=== PATIENT | female | born 1980 | race Hispanic/Latino ===

== ENCOUNTER 2017-05-13 09:43 | Outpatient (CLI) | payer OTHER ==
[2017-05-13] MEDS ORDERED: Iopamidol 370 76% 100 ML VIAL ONE (16:05)
== END 2017-05-13 09:44 | disposition home or self-care (01) ==
LOC: BICCT 09:43
PROVIDERS: ATTEND Family Medicine
DX: R10.13 Epigastric pain (principal); K76.0 Fatty (change of) liver, not elsewhere classified; N83.8 Other noninflammatory disorders of ovary, fallopian tube and broad ligament
CPT/HCPCS: 74177

== ENCOUNTER 2017-05-17 16:30 | Emergency (ER) | payer OTHER ==
[2017-05-17] MEDS ORDERED: Ondansetron HCl/PF 4 MG/2 ML Vial ONE (17:08)
[2017-05-17] MEDS ORDERED: Proparacaine 0.5% Opth 15 ML BOT ONE (17:32)
[2017-05-17] MEDS ORDERED: Fluorescein Opthalmic Strip ONE (17:32)
[2017-05-17] MEDS ORDERED: Metoclopramide HCl 10 MG/2 ML VIAL ONE (17:35)
[2017-05-17] MEDS ORDERED: diphenhydrAMINE 50 MG/ML VIAL ONE (17:35)
== END 2017-05-17 20:01 | disposition home or self-care (01) ==
LOC: ERS 16:30
DX: M79.2 Neuralgia and neuritis, unspecified (principal); R51 Headache; I10 Essential (primary) hypertension
CPT/HCPCS: 96365; 96375; J1200; J2405; J2765

== ENCOUNTER 2019-07-25 09:37 | Emergency (ER) | payer OTHER, SELFPAY ==
--- NOTE | 2019-07-25 10:04 | RAD ---
RADIOGRAPH CHEST 1 VIEW: DATE: 07/25/2019 HISTORY: 38-year-old female with hypertension and chest pain FINDINGS: There is no airspace density, pulmonary edema, or pneumothorax. The lateral costophrenic angles are n ot effaced. IMPRESSION: No acute pulmonary findings.
[2019-07-25] MEDS ORDERED: Iopamidol-370 76% 500 ML 1 ML ONE (10:19)
[2019-07-25] MEDS ORDERED: Ondansetron PF 4 MG/2 ML Vial ONE (10:21)
[2019-07-25] MEDS ORDERED: Morphine 4 MG/ML VIAL ONE ×2 (10:21→13:53)
[2019-07-25] MEDS ORDERED: Ketorolac Tromethamine 30 MG/ML VIAL ONE (10:21)
[2019-07-25 10:36] LABS: #Basophils 0.1 thou/uL (0.0-0.2); #Eosinphils 0.1 thou/uL (0.0-0.7); #Lymphocytes 2.2 thou/uL (1.20-3.40); #Monocytes 0.9 thou/uL (0.11-0.59); #Neutrophils 8.6 thou/uL (1.40-6.50); %Basophils 0.5 % (0.0-1.0); %Lymphocytes 18.3 % (21.0-51.0); %Monocytes 7.2 % (0.0-10.0); Hemoglobin 13.4 g/dL (12.0-16.0); Mean Corpuscular Hemoglobin 29.5 pg (27.0-31.0); Mean Corpuscular Volume 92.2 fL (78.0-98.0); Mean Platelet Volume 9.4 fL (7.4-10.4); Platelet Count 239 thou/uL (130-400); RBC Distribution Width 12.5 % (11.5-14.5); Red Blood Cell (RBC) Count 4.54 mill/uL (4.20-5.40); White Blood Cell (WBC) Count 11.7 thou/uL (4.8-10.8)
[2019-07-25 10:56] LABS: D-Dimer Test 0.49 *mcg/mL (0.27-0.43)
[2019-07-25 10:57] LABS: BHCG - Serum Negative (NEGATIVE); Pregs Control Background? CLEAR/WHITE (CLR/WHITE); Pregs Control Bar Appear? YES (CONTROL BAR)
[2019-07-25 10:58] LABS: ALT (SGPT) 33 U/L (8-55); AST (SGOT) 28 U/L (5-34); Albumin 4.1 g/dL (3.5-5.0); Alkaline Phosphatase 77 U/L (40-110); Anion Gap 17 mmol/L (10-20); BUN (Urea Nitrogen) 5 mg/dL (7.0-18.7); Bilirubin, Total 0.4 mg/dL (0.2-1.2); Calc. Creatinine Clearance 0 mL/min (70-130); Calcium 8.4 mg/dL (7.8-10.44); Carbon Dioxide 17 mmol/L (22-29); Chloride 103 mmol/L (98-107); Estimated GFR-MDRD 90; Globulin 3.7 g/dL (2.4-3.5); Potassium 3.8 mmol/L (3.5-5.1); Protein, Total 7.8 g/dL (6.0-8.3); Sodium 133 mmol/L (136-145)
[2019-07-25 11:12] LABS: Glucose 179 mg/dL (70-105)
--- NOTE | 2019-07-25 12:20 | CT ---
CT ABDOMEN WITH CONTRAST CT PELVIS WITH CONTRAST: DATE: 07/25/2019 HISTORY: 38-year-old female with nausea and vomiting with abdominal pain COMPARISON: 05/13/2017 TECHNIQUE: IV injection of iodinated contrast media: administered. Oral contrast media:Not administered FINDINGS: Interval worsening of diffuse fatty liver. Interval slight worsening of hepatomegaly. Normal kidneys, abdominal aorta, adrenals, pancreas, spleen, appendix, and urinary bladder. No colonic diverticulitis, small bowel dilation, ascites, pneumoperitoneum, or abscess. No pleural effusion or consolidation at lung bases. Mild gallbladder distention without mural thickening or pericholecystic fluid. IMPRESSION: 1. Interval worsening of hepatic steatosis. 2. Interval worsening of hepatomegaly.
--- NOTE | 2019-07-25 13:10 | ULT ---
Exam: Right upper quadrant ultrasound: HISTORY: Right shoulder pain. Nausea and vomiting. COMPARISON: CT abdomen on 07/25/2019 FINDINGS: Liver: Increased echogenicity of the liver compatible with fatty infiltration which is noted on recen t CT scan exam. Diffuse fatty infiltration limits evaluation of the hepatic parenchyma on sonographic evaluation. However, no focal hepatic mass was seen on CT exam. Small hypoechoic area see n adjacent to the gallbladder is most suggestive of a focal area of fatty sparing which was seen on CT exam. Liver is enlarged in craniocaudal dimensions measuring 19 cm. Gallbladder: No evidence of gallbladder calculi, gallbladder wall thickening, or pericholecystic flui d. Common bile duct: The common duct is normal in caliber measuring 0.5 cm in diameter. Pancreas: Mostly obscured due to shadowing from bowel gas. The limited visualized portions of the morris creas have a normal sonographic appearance. Right kidney: Right kidney demonstrates a normal sonographic appearance. The right kidney measures 1 2.9 cm in length. IVC: The visualized IVC demonstrates a normal sonographic appearance. IMPRESSION: 1. Hepatomegaly with diffuse fatty infiltration of the liver. There is limited evaluation of the hepa tic parenchyma due to the fatty infiltration. However, no hepatic mass was seen on recent CT scan exam. 2. No gallbladder calculi are visualized, and the common duct is normal in caliber.
[2019-07-25 16:33] LABS: SARS-CoV-2 MS2 Positive; SARS-CoV-2 N Gene Negative; SARS-CoV-2 S Gene Negative; SARS-CoV-2 orf1ab Negative
--- NOTE | 2019-07-29 15:34 | EKG ---
Test Reason : Blood Pressure : / mmHG Vent. Rate : 102 BPM Atrial Rate : 102 BPM P-R Int : 192 ms QRS Dur : 098 ms QT Int : 366 ms P-R-T Axes : 038 003 002 degrees QTc Int : 477 ms Sinus tachycardia Minimal voltage criteria for LVH, may be normal variant Borderline ECG Confirmed by AGUSTINA CRUZ ([id number]), loan expeditor JOSÉ MIGUEL CRUZ ([id number]) on 07/29/2019 3:33:46 PM Referred By: Confirmed By:AGUSTINA CRUZ
== END 2019-07-25 13:50 | disposition home or self-care (01) ==
LOC: ERS 09:37
DX: K80.20 Calculus of gallbladder without cholecystitis without obstruction (principal); K76.0 Fatty (change of) liver, not elsewhere classified; I10 Essential (primary) hypertension; Z20.828 Contact with and (suspected) exposure to other viral communicable diseases
CPT/HCPCS: 36415; 71045; 74177; 76705; 80053; 84484; 84703; 85025; 85379; 85730; 87635; 93005; 96361; 96374; 96375; 96376; J1885; J2270; J2405; Q9967; U0003

== ENCOUNTER 2019-11-18 00:54 | Observation (INO) | payer MEDICAID, OTHER ==
[2019-11-18 01:25] LABS: #Eosinphils 0.1 thou/uL (0.0-0.7); #Lymphocytes 2.4 thou/uL (1.20-3.40); #Monocytes 0.7 thou/uL (0.11-0.59); %Basophils 0.6 % (0.0-1.0); %Eosinophils 1.4 % (0.0-10.0); %Lymphocytes 28.8 % (21.0-51.0); %Monocytes 8.8 % (0.0-10.0); %Neutrophils 60.5 % (42.0-75.0); Mean Corpuscular HGB CONC 32.9 g/dL (32.0-36.0); Mean Corpuscular Hemoglobin 30.2 pg (27.0-31.0); Mean Corpuscular Volume 91.9 fL (78.0-98.0); Mean Platelet Volume 10.1 fL (7.4-10.4); Platelet Count 227 thou/uL (130-400); RBC Distribution Width 12.5 % (11.5-14.5); White Blood Cell (WBC) Count 8.3 thou/uL (4.8-10.8)
[2019-11-18] MEDS ORDERED: Piperacillin/Tazobactam 4.5 GM VIAL ONE (01:40)
[2019-11-18 01:47] LABS: ALT (SGPT) 29 U/L (8-55); AST (SGOT) 27 U/L (5-34); Albumin 4.1 g/dL (3.5-5.0); Alkaline Phosphatase 109 U/L (40-110); Anion Gap 17 mmol/L (10-20); BUN (Urea Nitrogen) 8 mg/dL (7.0-18.7); Bilirubin, Total 0.3 mg/dL (0.2-1.2); Calc. Creatinine Clearance 0 mL/min (70-130); Calcium 9.4 mg/dL (7.8-10.44); Carbon Dioxide 20 mmol/L (22-29); Chloride 101 mmol/L (98-107); Estimated GFR-MDRD 69; Globulin 3.4 g/dL (2.4-3.5); Glucose 317 mg/dL (70-105); Lipase 21 U/L (8-78); Potassium 3.7 mmol/L (3.5-5.1); Protein, Total 7.5 g/dL (6.0-8.3); Sodium 134 mmol/L (136-145)
[2019-11-18 01:51] LABS: Troponin I 0.018 ng/mL (< 0.028)
[2019-11-18 02:58] LABS: Bacteria/HPF None Seen HPF (None Seen); Bilirubin Negative (Negative); Blood, Urine Trace (Negative); Clarity Clear (Clear); Glucose, Urine (Dipstick) Greater than 1000 mg/dL (Negative); Ketone, Urine Trace mg/dL (Negative); Leukocyte Negative Leu/uL (Negative); Nitrite Negative (Negative); Protein, Urine (Dipstick) 20 mg/dL (Neg-Trace); RBC/HPF 0-3 HPF (0-3); Specific Gravity, Urine 1.033 (1.002-1.036); Squamous Epithelial 0-3 HPF (0-3); Urobilinogen Normal mg/dL (Less than 2); WBC/HPF 0-3 HPF (0-3)
[2019-11-18 06:43] VITALS: BMI 45.1
[2019-11-18] MEDS ORDERED: hydrALAZINE 20 MG/ML VIAL SLOW IVP PRN (06:50)
[2019-11-18] MEDS ORDERED: Promethazine HCl 12.5 MG in Sodium Chloride 0.9% 50 ML IVPB PRN (06:50)
[2019-11-18] MEDS ORDERED: Acetaminophen 325 MG TAB PO PRN (06:50)
[2019-11-18] MEDS ORDERED: cloNIDine 0.1 MG TAB PO PRN (06:50)
[2019-11-18] MEDS ORDERED: Ondansetron PF 4 MG/2 ML Vial IVP PRN (06:50)
[2019-11-18] MEDS ORDERED: Labetalol HCl 100 MG/20 ML VIAL SLOW IVP PRN (06:50)
[2019-11-18] MEDS ORDERED: Morphine 2 MG/ML VIAL SLOW IVP PRN (06:50)
[2019-11-18] MEDS ORDERED: Dextrose 5% in Water 1,000 ML IV PRN (06:54)
[2019-11-18] MEDS ORDERED: Dextrose 50% Abboject 50 ML SYRINGE SLOW IVP PRN (06:54)
--- NOTE | 2019-11-18 06:54 | PDOC.HHP ---
Hospitalist HPI - History of Present Illness Abdominal pain History of Present Illness: Patient is a 39 year old female with PMH prediabetes/diabetes, HTN who presents to ED for 1-2 weeks of RUQ and epigastric abdominal pain, nausea, vomiting, hematemesis x 1 episode, and contipation. She reports the pain is worse after eating, feels like food is going around her whole stomach. She has had nause and vomiting starting last night, and her last episode of vomiting was apparantly red and bloody with clots. She denies history of gallbaldder or other abdominal surgery. She was previously diagnosed with cholelithiasis by Dr Ray in July 2019. She reports consiptation for much of last 2 weeks as well. In ED, labs significant for lactic acid of 3.3, abdominal CT final report pending but ED preliminary read did not show obvious obstruction. Patient RUQ US is pending. Patient also had very high BP and sugar, and appears to have progressed from prediabetes to DM now. BP elevated. Hospitalist ROS - Review of Systems Constitutional: denies: fever, chills, sweats, weakness, malaise, other Eyes: denies: pain, vision change, conjunctivae inflammation, eyelid inflammation, redness, other ENT: denies: ear pain, ear discharge, nose pain, nose discharge, nose congestion , mouth pain, mouth swelling, throat pain, throat swelling, other Respiratory: denies: cough, dry, shortness of breath, hemoptysis, SOB with excertion, pleuritic pain, sputum, wheezing, other Cardiovascular: denies: chest pain, palpitations, orthopnea, paroxysmal noc. dyspnea, edema, light headedness, other Gastrointestinal: reports: nausea, vomiting, abdominal pain, constipation, other (hematemesis x 1) Genitourinary: denies: dysuria, frequency, incontinence, hematuria, retention, other Musculoskeletal: denies: neck pain, shoulder pain, arm pain, back pain, hand pain, leg pain, foot pain, other Skin: denies: rash, lesions, rashaad, bruising, other Neurological: denies: weakness, numbness, incoordination, change in speech, confusion, seizures, other All other systems reviewed; all pertinent +/- noted in HPI/Subj - Medication Medications: none Hospitalist History - Past Medical History Other Medical History: HTN DM - Past Surgical History Past Surgical History: reports: no pertinent history - Family History Family History: reports: no pertinent history - Social History Alcohol: reports: None Drugs: reports: none - Exam General Appearance: NAD, awake alert Eye: PERRL, anicteric sclera ENT: normocephalic atraumatic, no oropharyngeal lesions, moist mucosa Neck: supple, symmetric, no JVD, no thyromegaly, no lymphadenopathy, no carotid bruit Heart: RRR, no murmur, no gallops, no rubs, normal peripheral pulses Respiratory: CTAB, no wheezes, no rales, no ronchi, normal chest expansion, no tachypnea, normal percussion Gastrointestinal: soft, non-distended, normal bowel sounds, no palpable masses, no hepatomegaly, no splenomegaly, no bruit Gastrointestinal - other findings: RUQ and epigastric tenderness, no rebound/ guarding. Extremities: no cyanosis, no clubbing, no edema Skin: normal turgor, no lesions, no rashes Neurological: cranial nerve grossly intact, normal sensation to touch, no weakness, no focal deficits, no new deficit Musculoskeletal: normal tone, normal strength, no muscle wasting Psychiatric: normal affect, normal behavior, A&O x 3 Hospitalist Results - Labs Result Diagrams: 11/18/19 01:17 11/18/19 01:17 Lab results: WBC 8.3 thou/uL (4.8-10.8) 11/18/19 01:17 Hgb 13.0 g/dL (12.0-16.0) 11/18/19 01:17 Hct 39.6 % (36.0-47.0) 11/18/19 01:17 MCV 91.9 fL (78.0-98.0) 11/18/19 01:17 Plt Count 227 thou/uL (130-400) 11/18/19 01:17 Neutrophils % 60.5 % (42.0-75.0) 11/18/19 01:17 Sodium 134 mmol/L (136-145) L 11/18/19 01:17 Potassium 3.7 mmol/L (3.5-5.1) 11/18/19 01:17 Chloride 101 mmol/L (98-107) 11/18/19 01:17 Carbon Dioxide 20 mmol/L (22-29) L 11/18/19 01:17 BUN 8 mg/dL (7.0-18.7) 11/18/19 01:17 Creatinine 0.92 mg/dL (0.6-1.1) 11/18/19 01:17 Glucose 317 mg/dL (70-105) H 11/18/19 01:17 Lactic Acid 3.0 mmol/L (0.5-2.2) H 11/18/19 03:56 Calcium 9.4 mg/dL (7.8-10.44) 11/18/19 01:17 Total Bilirubin 0.3 mg/dL (0.2-1.2) 11/18/19 01:17 AST 27 U/L (5-34) 11/18/19 01:17 ALT 29 U/L (8-55) 11/18/19 01:17 Alkaline Phosphatase 109 U/L (40-110) 11/18/19 01:17 Troponin I 0.018 ng/mL (< 0.028) 11/18/19 01:17 Serum Total Protein 7.5 g/dL (6.0-8.3) 11/18/19 01:17 Albumin 4.1 g/dL (3.5-5.0) 11/18/19 01:17 Lipase 21 U/L (8-78) 11/18/19 01:17 Urine Ketones Trace mg/dL (Negative) A 11/18/19 02:29 Urine Blood Trace (Negative) A 11/18/19 02:29 Urine Nitrite Negative (Negative) 11/18/19 02:29 Ur Leukocyte Esterase Negative Won/uL (Negative) 11/18/19 02:29 Urine RBC 0-3 HPF (0-3) 11/18/19 02:29 Urine WBC 0-3 HPF (0-3) 11/18/19 02:29 Ur Squamous Epith Cells 0-3 HPF (0-3) 11/18/19 02:29 Urine Bacteria None Seen HPF (None Seen) 11/18/19 02:29 Additional comment: labs reviewed, imaging discussed with ED who reported their prelim read, final read not available. Hospitalist H&P A/P - Plan Plan: Patient is a 39 year old female with PMH prediabetes/diabetes, HTN who presents to ED for 1-2 weeks of RUQ and epigastric abdominal pain, nausea, vomiting, hematemesis x 1 episode, and contipation. # abdominal pain # history of cholelithiasis # lactic acidosis suspect this is cholecystitis based on history and exam, however given hematemesis episode with clots will need to have specialist input. - admit to floor - NPO, IVF - consult GI and general surgery - start IV protonix daily - trend CBC - follow up final imaging reports, all of which are not yet available # DM - sugars in 330s on arrival - SSI - check A1C # HTN - elevated in ED, start norvasc and PRN medications available DVT/GI ppx full code
[2019-11-18] MEDS ORDERED: Electrolyte Replacement Protoc 1 EACH EACH FS SCH (07:00)
--- NOTE | 2019-11-18 07:34 | RAD ---
CHEST 1 VIEW: Date: 11/18/2019 INDICATION: History of emergency examination and chest pain. COMPARISON: Prior exam dated 07/25/2019. FINDINGS: There is stable mild cardiomegaly. Lungs are clear. No pleural effusion or pneumothorax is evident. N o acute osseous abnormality is evident. IMPRESSION: Stable mild cardiomegaly. POS: BH
[2019-11-18] MEDS ORDERED: Morphine 4 MG/ML VIAL IV PRN (08:29)
--- NOTE | 2019-11-18 09:08 | ULT ---
PRELIMINARY REPORT/[facility]/EMERGENCY AFTER HOURS PROCEDURE: EXAM: US Abdomen Limited, Right Upper Quadrant. CLINICAL HISTORY: RUQ pain x 2 wks, pain worse tonight, N/V, constipation TECHNIQUE: Real-time ultrasound of the right upper quadrant with image documentation. COMPARISON: None provided. FINDINGS: LIVER: Appears enlarged to 23.5 cm and demonstrates fatty infiltration. GALLBLADDER: No gallstone. The gallbladder wall is mildly thickened at 4.1 mm likely due to a contracted state. N o pericholecystic fluid. COMMON BILE DUCT: No dilation. Measures 3.7 mm PANCREAS: Mostly obscured by overlying bowel gas. RIGHT KIDNEY: Unremarkable. No hydronephrosis. Measures 13.9 cm IMPRESSION: Fatty infiltration of the liver. Mild gallbladder wall thickening, likely related to a contracted st ate. ELECTRONICALLY SIGNED BY: Garcia Wu MD Nov 18, 2019 2:24:22 AM CDT This report is intended for review by the ordering physician only, in accordance of law. If you recei ve this report in error, please call [facility] at [phone]. FINAL REPORT RIGHT UPPER QUADRANT ULTRASOUND: There is diffuse fatty infiltration of the liver. The gallbladder wall was mildly thickened; however , it was not well distended. No sonographic Navarro's sign. POS:
--- NOTE | 2019-11-18 09:09 | CT ---
PRELIMINARY REPORT/[facility]/EMERGENCY AFTER HOURS PROCEDURE: EXAM: CT Abdomen and Pelvis with Intravenous Contrast CLINICAL HISTORY: -year-old female with past medical history significant for prediabetes, high blood pressure who prese nts for right upper quadrant pain. Pain is worse with eating and accompanied by nausea, vomiting. Janay n is sharp and worse with palpation. Nothing alleviates the pain. It has become more constant in the last couple of days. She was diagnosed with cholelithiasis in July 2019. Surgical history of hysterect radha, Notes: partial. C-SECTIONS X5. TECHNIQUE: Axial computed tomography images of the abdomen and pelvis with intravenous contrast. CONTRAST: With; ISOVUE COMPARISON: CT\SR - CT ABDOMEN PELVIS W CON - 07/25/2019 12:02 PM CDT FINDINGS: LUNG BASES: No basilar airspace consolidation or pleural effusion. LIVER: Pronounced diffuse fatty infiltration of the liver. GALLBLADDER AND BILE DUCTS: The gallbladder is decompressed but is otherwise unremarkable. PANCREAS: Unremarkable. SPLEEN: Unremarkable. ADRENAL GLANDS: Unremarkable. KIDNEYS, URETERS, AND BLADDER: Unremarkable. No hydronephrosis or nephrolithiasis. No ureteral or bladder calculi. STOMACH AND BOWEL: No obstruction. No wall thickening. No CT evidence of colitis or acute diverticulitis. APPENDIX: The appendix is normal. PERITONEUM: No free fluid. No free air. REPRODUCTIVE: Unremarkable as visualized. VASCULATURE: No aortic aneurysm. BONES: No fracture or suspicious osseous abnormality. ABDOMINAL WALL AND SOFT TISSUES: Unremarkable. IMPRESSION: Pronounced diffuse fatty infiltration of the liver. ELECTRONICALLY SIGNED BY: Binh Shaw MD Nov 18, 2019 3:17:37 AM CDT This report is intended for review by the ordering physician only, in accordance of law. If you recei ve this report in error, please call [facility] at [phone]. FINAL REPORT: CT ABDOMEN AND PELVIS WITH CONTRAST: I agree with the preliminary report provided. There is prominent fatty infiltration of the liver and hepatomegaly that appears similar to a recent study dated 07/25/2019. Other findings as above. POS:
[2019-11-18] MEDS: Sodium Chloride 0.9% 1,000 ML IV SCH ×2 (09:40→17:15)
[2019-11-18] MEDS: Amlodipine 5 MG TAB PO SCH (09:44)
[2019-11-18] MEDS: Pantoprazole 40 MG VIAL IVP SCH (09:47)
[2019-11-18] MEDS ORDERED: PROPOFOL 200 MG/20 ML VIAL ONE (10:01)
[2019-11-18] MEDS ORDERED: Lidocaine 1% PF 5 ML VIAL ONE (10:01)
[2019-11-18] MEDS: HumaLOG 300 UNITS/3 ML VIAL SC PRN ×2 (11:32→18:02)
[2019-11-18] MEDS ORDERED: Acetaminophen 500 MG TAB PO PRN (12:25)
[2019-11-18] MEDS ORDERED: traMADol HCl 50 MG TAB PO PRN (12:25)
--- NOTE | 2019-11-18 12:39 | PDOC.HOSPP ---
- Subjective Encounter Date: 11/18/19 Encounter Time: 10:10 Subjective: Patient still has complaint of abdominal pain mostly on the right quadrant side. She looks ill-appearing. She is also warm to touch. N.p.o. plan for or visit by this afternoon. - Objective Vital Signs & Weight: Vital Signs (12 hours) Temp Pulse Resp BP BP Pulse Ox 11/18/19 11:09 98.0 F 93 18 138/88 95 11/18/19 09:44 96 11/18/19 07:23 98.2 F 96 16 138/75 97 11/18/19 06:29 97.8 F 96 18 137/84 95 Weight Weight 264 lb 8.875 oz Result Diagrams: 11/18/19 01:17 11/18/19 01:17 Additional Labs: Accuchecks 11/18/19 11:15 POC Glucose 198 H Hospitalist ROS - Medication Medications: Active Medications Generic Name Dose Route Start Last Admin Trade Name Freq PRN Reason Stop Dose Admin Amlodipine Besylate 5 mg 11/18/19 09:00 11/18/19 09:44 Norvasc PO 5 mg DAILY ETHAN Administration Sodium Chloride 1,000 mls @ 100 mls/hr 11/18/19 07:00 11/18/19 09:40 Normal Saline 0.9% IV 1,000 mls .Q10H ETHAN Administration Insulin Human Lispro 0 units 11/18/19 06:54 11/18/19 11:32 Humalog SC 2 unit .MODERATE SLIDING SC PRN Administration Moderate Correctional Scale Pantoprazole Sodium 40 mg 11/18/19 07:00 11/18/19 09:47 Protonix IVP 40 mg Q24HR ETHAN Administration Sodium Chloride 10 ml 11/18/19 09:00 11/18/19 09:44 Flush - Normal Saline IVF 10 ml Q12HR ETHAN Administration - Exam General Appearance: ill appearing General - other findings: Obese Eye: PERRL ENT: normocephalic atraumatic Neck: supple Heart: RRR, normal peripheral pulses Respiratory: CTAB, normal chest expansion Gastrointestinal: soft, tender to palpation, distended Gastrointestinal - other findings: On the right side tenderness. To deep palpation Neurological: no focal deficits Psychiatric: A&O x 3 Hosp A/P - Plan 39 year old female with PMH prediabetes/diabetes, HTN -1-2 weeks of RUQ and epigastric abdominal pain, nausea, vomiting, hematemesis x 1 episode, and contipation. # abdominal pain # history of cholelithiasis # lactic acidosis - clinical cholecystitis -Right upper quadrant ultrasound shows mild gallbladder wall thickening and fatty infiltration of the liver. -CT of the abdomen shows diffuse fatty infiltration of the liver hepatomegaly similar to July 2019 study. Her LFTs are in the normal range including alkaline phosphatase of 109. Lipase 21. - NPO, IVF - consulted GI and general surgery - start IV protonix daily - trend CBC - follow up final imaging reports, all of which are not yet available # DM - sugars in 330s on arrival - SSI - check A1C # HTN - elevated in ED, start norvasc and PRN medications available
[2019-11-18 13:06] LABS: SARS-CoV-2 MS2 Positive; SARS-CoV-2 N Gene Negative; SARS-CoV-2 S Gene Negative; SARS-CoV-2 by NAA Not Detected (NotDetected); SARS-CoV-2 orf1ab Negative
--- NOTE | 2019-11-18 15:12 | NM ---
HEPATOBILIARY SCAN: HISTORY:Abdominal pain. No gallstone on recent ultrasound RADIOPHARMACEUTICAL: 4.8 mCi Technetium 99m Mebrofenin injected intravenously FINDINGS: There is normal tracer extraction by the liver with normal excretion into the biliary tracts and smal l bowel loops and normal filling of the gallbladder. The calculated gallbladder ejection fraction following an oral fatty meal measures 57%. IMPRESSION:Normal exam.
[2019-11-18] MEDS: Magnesium 2 GM/50 ML 2 GM in Premix Bag 1 BAG IVPB SCH ×2 (15:55→17:28)
[2019-11-18] MEDS ORDERED: Iopamidol 370 76% 100 ML VIAL ONE (16:09)
--- NOTE | 2019-11-18 16:31 | CON ---
DATE OF CONSULTATION: 11/18/2019 HISTORY OF PRESENT ILLNESS: Delaney Melo is a 39-year-old morbidly obese female, 5 feet and 4 inches, 264 pounds, has had over a year symptoms of right upper quadrant pain, back radiation. This occurs postprandial. She had an abdominal ultrasound and CAT scan in July 2019 that was unremarkable except for fatty infiltration of the liver. On 11/18/2019, she was seen in the emergency room early this morning and repeat CAT scan of the abdomen and pelvis and ultrasound of the gallbladder revealed fatty infiltration of the liver without gallstones. The patient's liver function tests were normal. Bilirubin normal. Bile duct caliber normal. She was admitted by Hospitalist Service. GI and Surgery consulted. ALLERGIES: TO MEDICATIONS, NONE. SOCIAL HISTORY: Tobacco, none. Alcohol, none. MEDICATIONS: At home, none routinely. On admission, the patient's glucose was noted to be 317 to 198. Hence, sliding scale insulin has been ordered. This is a new diagnosis, diabetes mellitus. PAST SURGICAL HISTORY: 1. Debridement of her right groin, performed by me post delivery. 2. Robotic hysterectomy. PHYSICAL EXAMINATION: VITAL SIGNS: 5 feet and 4 inches, 264 pounds, 98 degrees, 93, 130/88. HEAD, EARS, EYES, NOSE, AND THROAT: Unremarkable. LUNGS: Clear to auscultation. CARDIAC: Regular rate and rhythm without murmur or gallop. ABDOMEN: Soft, obese. Tenderness in right upper quadrant with guarding, epigastrium tender with guarding. Abdomen otherwise soft. No hernias. EXTREMITIES: Unremarkable. ASSESSMENT AND PLAN: 1. The patient has symptoms consistent with biliary colic, yet her ultrasound and CAT scan in July and on this admission are negative for any gallstones or biliary abnormality. Her gallbladder was contracted. HIDA scan with ejection fraction has been ordered. We will await those results. COVID screen is pending. GI consultation is pending. We will await further information, but pending these evaluations, she may need a laparoscopic cholecystectomy should that be necessary. I have discussed this with her. Risks of infection, bleeding, reoperation discussed. She consents if indicated. We will await the above testing. 2. New diagnosis of diabetes mellitus, undergoing evaluation with Medical Service. Job ID: [id number]
--- NOTE | 2019-11-18 18:40 | CON ---
DATE OF CONSULTATION: 11/18/2019 REASON FOR CONSULTATION: Abdominal pain, nausea, vomiting, and history of hematemesis. HISTORY OF PRESENT ILLNESS: Delaney Melo is a 39-year-old female hospitalized with abdominal pain, nausea, vomiting, history of vomiting blood yesterday. The patient has abdominal pain off and on over the last 2 weeks. The pain is across the upper abdomen, especially right upper quadrant going laterally to her right flank and also to the epigastric area. The patient has had abdominal pain off and on over the last several months. Apparently, she has seen Dr. Dion Ray, I believe, in May to July of 2019. She had abdominal CAT scan and abdominal sonogram that basically shows fatty liver, but no gallstones seen. The patient has been having abdominal pain over the last 2 weeks. The pain got worse yesterday. The pain is worse after meals. This is the first time she had vomited blood. The blood was bright red in color. No history of melena. The patient denies any taking aspirin or any NSAID medications. No prior history of peptic ulcer. The patient had abdominal sonogram again today and sonogram shows no gallstones or fatty liver. The gallbladder is contracted. The patient continues to have abdominal pain and has mild nausea today. She had no more vomiting. Although she has history of vomiting blood, her blood count is actually fairly normal. Admitting CBC shows hemoglobin of 13, hematocrit 39.6, MCV is 94.9. She had no relevant history. ALLERGIES: NONE. SOCIAL HISTORY: The patient does not smoke or drink alcohol. MEDICAL ILLNESSES: 1. Diabetes mellitus. 2. Hypertension. 3. Obesity. 4. History of total hysterectomy with bilateral oophorectomy in 2013 for menorrhagia. 5. History of abscess over the back in buttock area with I and D followed by skin grafting over the upper thighs in the past. MEDICATION LIST: Reviewed. FAMILY HISTORY: One aunt has had diabetes, hypertension, and had some cancer. REVIEW OF SYSTEMS: 10-point system reviewed. 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 No chronic headache. No syncope. No TIA. RESPIRATORY: No chronic coughing. No hemoptysis. No dyspnea. CARDIOVASCULAR: No chest pain, no palpitation. No dyspnea, orthopnea, or PND. GI: Abdominal pain, nausea, vomiting, and hematemesis. : No dysuria, hematuria. MUSCULOSKELETAL: No back pain, arthralgias, myalgias. NEUROPSYCHIATRY: No depression or anxiety. HEMATOLOGICAL: Nonrelevant. HEENT: No chronic headache. No hearing loss. No impaired vision. PHYSICAL EXAMINATION: GENERAL: She appears comfortable but somewhat are nauseous. VITAL SIGNS: Normal. Afebrile, temperature 98 degrees Fahrenheit, pulse is 93, blood pressure 130/88. HEENT: Conjunctivae are clear. NECK: Supple. CARDIOVASCULAR SYSTEM: Normal heart sounds. LUNGS: Clear to auscultation. ABDOMEN: Soft. Abdomen is nondistended. Abdomen is tender across the upper abdomen area, upper right upper quadrant and going towards to the right flank area. She is more tender over laterally than medially. No rebound or guarding. EXTREMITIES: Reveal no edema. PHOTOCOPYING MACHINE OPERATOR grossly normal. LABORATORY DATA: WBC 8300, hemoglobin 13, hematocrit 39.6, MCV 99.9, platelet count 227,000, polymorphs 60, lymphocytes 28, monocytes eight. Serum chemistries, sodium slightly low at 134, potassium 3.7, chloride 101, bicarbonate 20, BUN is 8, creatinine 0.92, glucose is 317, calcium 9.4, magnesium 1.6, bilirubin 0.3 AST 27, ALT 29, alkaline phosphatase 109, albumin 4.1. Abdominal sonogram, controlled gallbladder but no gallstones. Lipase is normal 21. IMPRESSION: 1. Recurrent abdominal pain with negative abdominal sonogram, negative CAT scan. The pain is somewhat atypical for biliary tract disease. The pain is more lateral than medial. 2. History of hematemesis, possibly Karolina-Jackson tear with a history of retching and vomiting. 3. Obesity. 4. Hypertension. 5. Diabetes mellitus. RECOMMENDATION: 1. Agree with HIDA scan. 2. We will plan for EGD later on today. We talked to Ms. Melo, explained about the procedure in detail. She is agreeable. I will plan for EGD today and make further recommendations. Job ID: [id number]
--- NOTE | 2019-11-18 20:27 | OP ---
DATE OF PROCEDURE: 11/18/2019 OPERATIVE PROCEDURE: Esophagogastroduodenoscopy with biopsy. PREOPERATIVE DIAGNOSES: Abdominal pain, nausea, vomiting, and history of vomiting blood last night. POSTOPERATIVE DIAGNOSES: 1. Normal esophagus. 2. No Karolina-Jackson tear seen. 3. Stomach is completely empty of any blood or any old blood. 4. Ulceration with gastritis of the proximal stomach without any active bleeding. The ulcer is shallow and does not show any visible vessel. 5. Normal stomach otherwise and normal duodenum. DESCRIPTION OF PROCEDURE: The patient was placed on her left lateral position and was given sedation by Anesthesia Department. A Pentax video gastroscope under direct vision passed down the oropharynx, past the GE junction into the stomach and subsequently into the descending duodenum. The esophageal mucosa appears normal throughout. In the GE junction, no Karolina-Jackson tear seen. Over the proximal stomach, the patient was found to have ulceration, which appears shallow and also some gastritis. No visible vessel or any active bleeding seen. In the gastric body, gastric incisura, and antrum, no lesion seen. In the duodenal bulb and descending duodenum, no pathology seen. Biopsy obtained from the gastric antrum and gastric body. The stomach decompressed and the scope removed. OVERALL IMPRESSION: Although, the patient had ulcer disease over the proximal stomach, the ulcer is small and it does not explain the patient's abdominal pain and nausea. I did talk to the patient before the endoscopic exam. I did tell her she may think about possibly laparoscopic cholecystectomy because her symptoms are biliary tract disease. Job ID: [id number]
[2019-11-18] MEDS: Ketorolac Tromethamine 30 MG/ML VIAL IVP PRN (23:47)
[2019-11-19] MEDS: Sodium Chloride 0.9% 1,000 ML IV SCH ×2 (01:56→10:46)
[2019-11-19] MEDS: Pantoprazole 40 MG VIAL IVP SCH (06:08)
[2019-11-19 06:35] LABS: #Basophils 0.1 thou/uL (0.0-0.2); #Eosinphils 0.1 thou/uL (0.0-0.7); #Lymphocytes 2.3 thou/uL (1.20-3.40); #Monocytes 0.6 thou/uL (0.11-0.59); #Neutrophils 5.2 thou/uL (1.40-6.50); %Basophils 0.7 % (0.0-1.0); %Eosinophils 1.5 % (0.0-10.0); %Lymphocytes 28.1 % (21.0-51.0); %Monocytes 6.8 % (0.0-10.0); %Neutrophils 62.8 % (42.0-75.0); Hemoglobin 12.4 g/dL (12.0-16.0); Mean Corpuscular HGB CONC 32.2 g/dL (32.0-36.0); Mean Corpuscular Hemoglobin 29.7 pg (27.0-31.0); Mean Corpuscular Volume 92.3 fL (78.0-98.0); Mean Platelet Volume 9.9 fL (7.4-10.4); Platelet Count 221 thou/uL (130-400); RBC Distribution Width 12.7 % (11.5-14.5); Red Blood Cell (RBC) Count 4.18 mill/uL (4.20-5.40); White Blood Cell (WBC) Count 8.2 thou/uL (4.8-10.8)
[2019-11-19 06:46] LABS: Hemoglobin A1c 8.1 % (4.0-6.0)
[2019-11-19 07:01] LABS: Anion Gap 14 mmol/L (10-20); BUN (Urea Nitrogen) 6 mg/dL (7.0-18.7); Calc. Creatinine Clearance 203 mL/min (70-130); Calcium 8.2 mg/dL (7.8-10.44); Carbon Dioxide 22 mmol/L (22-29); Chloride 102 mmol/L (98-107); Estimated GFR-MDRD Greater than 90; Glucose 163 mg/dL (70-105); Potassium 3.9 mmol/L (3.5-5.1); Sodium 134 mmol/L (136-145)
[2019-11-19] MEDS: Amlodipine 5 MG TAB PO SCH (09:00)
[2019-11-19] MEDS ORDERED: Enoxaparin Sodium 30 MG/0.3 ML SYRINGE SC SCH (09:00)
[2019-11-19] MEDS: Enoxaparin Sodium 40 MG/0.4 ML SYRINGE SC SCH (09:00)
[2019-11-19] MEDS ORDERED: PHENYLEPHRINE-NS 100 MCG/ML 10 ML SYRINGE ONE (10:11)
[2019-11-19] MEDS ORDERED: Rocuronium Bromide 10 MG/ML (10ML VIAL) ONE (10:11)
[2019-11-19] MEDS ORDERED: Lidocaine 1% PF 5 ML VIAL ONE (10:11)
[2019-11-19] MEDS ORDERED: Glycopyrrolate 0.2 MG/ML 5 ML SYRINGE ONE (10:11)
[2019-11-19] MEDS ORDERED: Ondansetron PF 4 MG/2 ML Vial ONE (10:11)
[2019-11-19] MEDS ORDERED: Ketorolac Tromethamine 30 MG/ML VIAL ONE (10:11)
[2019-11-19] MEDS ORDERED: Dexamethasone 20 MG/5 ML VIAL ONE (10:11)
[2019-11-19] MEDS ORDERED: PROPOFOL 200 MG/20 ML VIAL ONE (10:11)
[2019-11-19] MEDS ORDERED: Succinylcholine Chloride 20 MG/ML 10 ml SYRINGE FS ONE (10:11)
[2019-11-19] MEDS ORDERED: Midazolam HCl 2 mg/2 ml Vial ONE ×2 (11:21→12:13)
[2019-11-19] MEDS ORDERED: Lidocaine 1% w/Epinephrine 1:100K 20 ML VIAL ONE (12:09)
[2019-11-19] MEDS ORDERED: Bupivacaine PF 0.5% 30 ML VIAL ONE (12:09)
[2019-11-19] MEDS ORDERED: Fentanyl 100 MCG/2 ML VIAL ONE ×2 (12:13→13:26)
[2019-11-19] MEDS ORDERED: Levofloxacin 500 mg/D5W 100 ml Premix Bag ONE (12:48)
--- NOTE | 2019-11-19 13:01 | PDOC.HOSPP ---
- Subjective Encounter Date: 11/19/19 Encounter Time: 08:40 Subjective: Patient is ambulating she is still in mild abdominal discomfort. Nontoxic looking. Patient had a EGD yesterday showing mild gastritis. HIDA scan done yesterday showing normal EF of 57%. - Objective Vital Signs & Weight: Vital Signs (12 hours) Temp Pulse Resp BP BP Pulse Ox 11/19/19 09:00 89 11/19/19 07:36 98.4 F 89 18 140/82 95 11/19/19 04:52 97.7 F 93 18 130/82 97 Weight Weight 264 lb 8.875 oz I&O: 11/18/19 11/19/19 11/20/19 06:59 06:59 06:59 Intake Total 11 Balance 11 Result Diagrams: 11/19/19 06:17 11/19/19 06:17 Additional Labs: Accuchecks 11/19/19 11/18/19 11/18/19 06:14 21:19 17:40 POC Glucose 164 H 132 H 155 H Hospitalist ROS - Medication Medications: Active Medications Generic Name Dose Route Start Last Admin Trade Name Freq PRN Reason Stop Dose Admin Amlodipine Besylate 5 mg 11/18/19 09:00 11/19/19 09:00 Norvasc PO Not Given DAILY ETHAN Enoxaparin Sodium 40 mg 11/19/19 09:00 11/19/19 09:00 Lovenox SC Not Given 0900 ETHAN Sodium Chloride 1,000 mls @ 100 mls/hr 11/18/19 07:00 11/19/19 10:46 Normal Saline 0.9% IV Not Given .Q10H ETHAN Insulin Human Lispro 0 units 11/18/19 06:54 11/18/19 18:02 Humalog SC 2 unit .MODERATE SLIDING SC PRN Administration Moderate Correctional Scale Ketorolac Tromethamine 30 mg 11/18/19 08:02 11/18/19 23:47 Toradol IVP 11/23/19 08:03 30 mg Q6H PRN Administration Pain Pantoprazole Sodium 40 mg 11/18/19 07:00 11/19/19 06:08 Protonix IVP 40 mg Q24HR ETHAN Administration Sodium Chloride 10 ml 11/18/19 09:00 11/19/19 10:42 Flush - Normal Saline IVF 10 ml Q12HR ETHAN Administration - Exam General Appearance: NAD, awake alert Eye: PERRL ENT: normocephalic atraumatic Neck: supple Heart: RRR Respiratory: CTAB, normal chest expansion Gastrointestinal: soft, normal bowel sounds Extremities: no edema Neurological: no focal deficits Psychiatric: A&O x 3 Hosp A/P - Plan 39 year old female with PMH prediabetes/diabetes, HTN -1-2 weeks of RUQ and epigastric abdominal pain, nausea, vomiting, hematemesis x 1 episode, and contipation. # abdominal pain # history of cholelithiasis # lactic acidosis - clinical cholecystitis -Right upper quadrant ultrasound shows mild gallbladder wall thickening and fatty infiltration of the liver. -CT of the abdomen shows diffuse fatty infiltration of the liver hepatomegaly similar to July 2019 study. Her LFTs are in the normal range including alkaline phosphatase of 109. Lipase 21. - NPO, IVF - consulted GI and general surgery - start IV protonix daily - trend CBC - follow up final imaging reports, all of which are not yet available # DM - sugars in 330s on arrival - SSI - check A1C # HTN - elevated in ED, start norvasc and PRN medications available 10th Patient had a EGD yesterday showing mild gastritis. HIDA scan done yesterday showing normal EF of 57%. -- NPO, IVF --Surgery evaluation in progress. 2 diabetes mellitus -A1c around 8.0 -Continue with the sliding scale insulin Current blood glucose still 1 55-1 64 range. If it drops further less than 100 , then we can switch to D5 half NS.
[2019-11-19] MEDS ORDERED: SUGAMMADEX SODIUM 500 MG/5 ML VIAL ONE (13:10)
[2019-11-19] MEDS ORDERED: Promethazine HCl 25 MG/ML VIAL IM PRN (13:26)
[2019-11-19] MEDS ORDERED: Ondansetron HCl/PF 4 MG/2 ML Vial IVP PRN (13:26)
[2019-11-19] MEDS ORDERED: Promethazine HCl 25 MG/ML VIAL SLOW IVP PRN (13:26)
[2019-11-19] MEDS: traMADol HCl 50 MG TAB PO PRN ×2 (15:04→21:33)
[2019-11-19] MEDS: HumaLOG 300 UNITS/3 ML VIAL SC PRN ×2 (16:03→21:45)
--- NOTE | 2019-11-19 16:12 | PDOC.EVN ---
Event Note - Event Note Event Note: blood cx grwoing GPC - 1/2 - 2nd set pending.
--- NOTE | 2019-11-19 18:19 | OP ---
DATE OF PROCEDURE: 11/19/2019 PREOPERATIVE DIAGNOSES: Chronic cholecystitis-normal ultrasound, normal HIDA scan, normal EGD, normal CAT scan, normal CT scan of the abdomen and pelvis except for fatty liver, morbid obesity. POSTOPERATIVE DIAGNOSES: Chronic cholecystitis-normal ultrasound, normal HIDA scan, normal EGD, normal CAT scan, normal CT scan of the abdomen and pelvis except for fatty liver, morbid obesity. PROCEDURE PERFORMED: Laparoscopic video cholecystectomy. ANESTHESIA: General, local 0.5% Marcaine 30 mL mixed with 1% Xylocaine with epinephrine 20 mL. DESCRIPTION OF PROCEDURE: The patient was taken to the operating room, where under general anesthesia, abdomen was prepared with ChloraPrep and draped in routine fashion. Local anesthetic was infiltrated in the skin and subcutaneous tissue about the operative site. Supraumbilical incision made. Pneumoperitoneum to 15 mmHg was obtained with a Veress needle, replaced with a 5 port. Right lateral subcostal incision made. At midclavicular and anterior axillary line, the 5 ports placed. Right subxiphoid incision made and an 11 mm port placed. Liver was a very fatty and enlarged. Fundus of the gallbladder was grasped at the cephalad. Omental adhesions taken down from the body of the gallbladder using cautery and infundibulum identified, dissected free. Cystic artery and duct dissected free. Critical view obtained. Cystic artery and duct doubly clipped proximally, divided, gallbladder dissected free from liver bed, obtaining good hemostasis prior to division of final peritoneal attachments. Gallbladder and contents removed, submitted to pathology. Good hemostasis ensured with cautery. Irrigant and pneumoperitoneum evacuated. All skin incisions were approximated with interrupted subdermal 4-0 Monocryl and [place] glue applied. Job ID: [id number]
[2019-11-19] MEDS: Vancomycin HCl 1.75 GM in Sodium Chloride 0.9% 500 ML IVPB SCH (18:37)
[2019-11-19] MEDS: Ketorolac Tromethamine 30 MG/ML VIAL IVP PRN (18:42)
[2019-11-19] MEDS: Piperacillin/Tazobactam 3.375 GM in Sodium Chloride 0.9% 100 ML IVPB SCH (21:24)
[2019-11-20] MEDS: Vancomycin HCl 1.75 GM in Sodium Chloride 0.9% 500 ML IVPB SCH ×2 (02:00→10:32)
[2019-11-20] MEDS: Piperacillin/Tazobactam 3.375 GM in Sodium Chloride 0.9% 100 ML IVPB SCH (05:23)
[2019-11-20 05:45] LABS: #Eosinphils 0.1 thou/uL (0.0-0.7); #Lymphocytes 1.3 thou/uL (1.20-3.40); #Monocytes 0.7 thou/uL (0.11-0.59); #Neutrophils 7.5 thou/uL (1.40-6.50); %Basophils 0.4 % (0.0-1.0); %Eosinophils 0.9 % (0.0-10.0); %Lymphocytes 13.5 % (21.0-51.0); %Monocytes 6.9 % (0.0-10.0); %Neutrophils 78.3 % (42.0-75.0); Hemoglobin 12.7 g/dL (12.0-16.0); Mean Corpuscular HGB CONC 32.7 g/dL (32.0-36.0); Mean Corpuscular Hemoglobin 30.1 pg (27.0-31.0); Mean Corpuscular Volume 92.1 fL (78.0-98.0); Mean Platelet Volume 9.8 fL (7.4-10.4); Platelet Count 210 thou/uL (130-400); RBC Distribution Width 12.5 % (11.5-14.5); White Blood Cell (WBC) Count 9.5 thou/uL (4.8-10.8)
[2019-11-20 06:05] LABS: Anion Gap 15 mmol/L (10-20); BUN (Urea Nitrogen) 5 mg/dL (7.0-18.7); Calc. Creatinine Clearance 203 mL/min (70-130); Calcium 8.4 mg/dL (7.8-10.44); Carbon Dioxide 21 mmol/L (22-29); Chloride 103 mmol/L (98-107); Estimated GFR-MDRD Greater than 90; Glucose 157 mg/dL (70-105); Potassium 3.8 mmol/L (3.5-5.1); Sodium 135 mmol/L (136-145)
[2019-11-20] MEDS: traMADol HCl 50 MG TAB PO PRN (06:40)
[2019-11-20] MEDS: Ketorolac Tromethamine 30 MG/ML VIAL IVP PRN (09:25)
[2019-11-20] MEDS: Amlodipine 5 MG TAB PO SCH (09:26)
[2019-11-20] MEDS: Enoxaparin Sodium 40 MG/0.4 ML SYRINGE SC SCH (09:26)
[2019-11-20] MEDS: HumaLOG 300 UNITS/3 ML VIAL SC PRN (13:44)
[2019-11-20 14:24] VITALS: BP 160/97; TEMP 97.6
--- NOTE | 2019-11-21 15:25 | EKG ---
Test Reason : Blood Pressure : / mmHG Vent. Rate : 119 BPM Atrial Rate : 119 BPM P-R Int : 188 ms QRS Dur : 102 ms QT Int : 300 ms P-R-T Axes : 047 015 004 degrees QTc Int : 422 ms Sinus tachycardia Nonspecific T wave abnormality Abnormal ECG Confirmed by LA ALVARADO DO ([id number]), publications editor JOSÉ MIGUEL CRUZ ([id number] on 11/21/2019 3:24:31 PM Referred By: Confirmed By:LA ALVARADO DO
--- NOTE | 2019-11-22 12:45 | DIS ---
DATE OF ADMISSION: 11/18/2019 DATE OF DISCHARGE: 11/20/2019 DISCHARGE DIAGNOSES: 1. Right upper quadrant and epigastric abdominal pain of 2-week duration. 2. History of cholelithiasis. 3. Clinical cholecystitis. 4. Status post laparoscopic cholecystectomy. 5. Type 2 diabetes mellitus with A1c of 8.0. DISCHARGE MEDICATIONS: 1. Ultram 50 mg q.6 p.r.n. 2. Augmentin 875 one tablet twice a day for 10 days. 3. Norvasc 10 mg daily. CONSULTS: GI as well as General Surgery. PROCEDURE: Laparoscopic cholecystectomy. PHYSICAL EXAMINATION: VITAL SIGNS: On the day of discharge, temperature 97.7, pulse 80, blood pressure is 157/89, saturating 94% on room air. GENERAL: The patient is alert, oriented. She is ambulating. She is tolerating her regular diet. Clinically sound enough to be discharged home. CARDIOVASCULAR: Regular rate and rhythm without murmurs, rubs, or gallops. LUNGS: Clear. ABDOMEN: Quite benign. HOSPITAL COURSE: This is a 39-year-old female presented with 2-week history of right upper quadrant and epigastric abdominal pain. Liver function tests were in the normal range. CT abdomen showed diffuse fatty infiltration of the liver, hepatomegaly as seen in July 2019 study. She had EGD done that showed mild gastritis only. HIDA scan showed EF of 57% with a normal gallbladder function. Her symptoms are consistent with biliary colic, even though imaging studies are very nondiagnostic or indeterminate. According to the General Surgery, gallbladder was contracted. HIDA scan was negative. COVID is negative. She went through the procedure and postprocedure, she did well. She did have blood culture growing Micrococcus species, one out of two and it seems to be contaminant and it is a venous culture. No staphylococcus species or Streptococcus species notified in the blood culture and since it is only one of the two and it is very likely contaminant, the patient is discharged with Augmentin for 10 days. The second set of culture is negative for any growth. She is afebrile. She did not have any elevated white count. Her hemoglobin 12.7, WBC 9.5 on the day of discharge. She does have uncontrolled type 2 diabetes mellitus with significant glucosuria. She needs ongoing medication adjustment for that. I am going to start her on metformin and needs to be uptitrated with her family care physician. DISCHARGE INSTRUCTIONS: Activity as tolerated. Diabetic diet. Follow up with PCP in 1 week. TIME SPENT: Discharge time took over 35 minutes. Job ID: [id number]
== END 2019-11-20 14:00 | disposition home or self-care (01) ==
LOC: ERS 00:54 → SURG A 06:40
PROVIDERS: ADMIT Internal Medicine; ATTEND Internal Medicine
PROC: 0DB68ZX Excision of Stomach, Via Natural or Artificial Opening Endoscopic, Diagnostic (ICD-10-PCS; principal; 2019-11-18)
PROC: 0FT44ZZ Resection of Gallbladder, Percutaneous Endoscopic Approach (ICD-10-PCS; 2019-11-19)
DX: K81.1 Chronic cholecystitis (principal); K25.4 Chronic or unspecified gastric ulcer with hemorrhage; K31.89 Other diseases of stomach and duodenum; K29.71 Gastritis, unspecified, with bleeding; K66.0 Peritoneal adhesions (postprocedural) (postinfection); K76.0 Fatty (change of) liver, not elsewhere classified; E11.10 Type 2 diabetes mellitus with ketoacidosis without coma; I10 Essential (primary) hypertension; K59.00 Constipation, unspecified; E66.01 Morbid (severe) obesity due to excess calories; Z68.42 Body mass index [BMI] 45.0-49.9, adult; Z91.018 Allergy to other foods; Z20.828 Contact with and (suspected) exposure to other viral communicable diseases
CPT/HCPCS: 36415; 36416; 71045; 74177; 76705; 78227; 80048; 80053; 81003; 81015; 83036; 83605; 83690; 83735; 84484; 85025; 87040; 87149; 87635; 88304; 88305; 88312; 93005; 96361; 96365; 96366; 96367; 96375; 96376; A9537; C9113; G0378; J1100; J1650; J1885; J1956; J2250; J2405; J2543; J2704; J3010; J3370; J3475; J3490; J7030; Q9967; S0020; U0003

== ENCOUNTER 2021-11-09 19:55 | Emergency (ER) | payer OTHER ==
[2021-11-09] MEDS ORDERED: Morphine 4 MG/ML VIAL ONE ×2 (22:02)
== END 2021-11-09 22:37 | disposition home or self-care (01) ==
LOC: ERS 19:55
DX: M54.50 Low back pain, unspecified (principal); M79.621 Pain in right upper arm; E11.9 Type 2 diabetes mellitus without complications; I10 Essential (primary) hypertension; V89.2XXA Person injured in unspecified motor-vehicle accident, traffic, initial encounter; Z79.84 Long term (current) use of oral hypoglycemic drugs
CPT/HCPCS: 71045; 72100; 72128; 96372; J2270

== ENCOUNTER 2024-10-23 18:29 | Emergency (ER) | payer OTHER ==
[2024-10-23 19:03] LABS: #Basophils 0.03 10x3/uL (0.0-0.2); #Eosinophils Less than 0.03 10x3/uL (0.0-0.7); #Monocytes 0.80 10x3/uL (0.11-0.59); #Neutrophils 11.88 10x3/uL (1.40-6.50); %Basophils 0.2 % (0.0-1.0); %Eosinophils 0.1 % (0.0-10.0); %Lymphocytes 9.2 % (21.0-51.0); %Monocytes 5.7 % (0.0-10.0); %Neutrophils 84.4 % (42.0-75.0); Hematocrit 39.2 % (36.0-47.0); Hemoglobin 12.6 g/dL (12.0-16.0); Mean Corpuscular Hemoglobin 29.4 pg (27.0-31.0); Mean Corpuscular Volume 91.6 fL (78.0-98.0); Platelet Count 260 10x3/uL (130-400); Red Blood Cell (RBC) Count 4.28 mill/uL (4.20-5.40); White Blood Cell (WBC) Count 14.06 10x3/uL (4.8-10.8)
[2024-10-23 19:30] LABS: ALT (SGPT) 25 U/L (Less than 34); AST (SGOT) 24 U/L (11-34); Albumin 4.3 g/dL (3.1-4.5); Alkaline Phosphatase 80 U/L (40-110); Anion Gap 19 mmol/L (10-20); BUN (Urea Nitrogen) 7 mg/dL (7.0-18.7); Bilirubin, Total 0.6 mg/dL (0.3-1.2); Calc. Creatinine Clearance 0 mL/min (70-130); Calcium 9.4 mg/dL (7.8-10.44); Carbon Dioxide 21 mmol/L (22-29); Chloride 97 mmol/L (98-107); Globulin 4.1 g/dL (2.4-3.5); Glucose 237 mg/dL (70-105); Potassium 3.9 mmol/L (3.5-5.1); Sodium 133 mmol/L (136-145)
[2024-10-23] MEDS ORDERED: Ketorolac Tromethamine 30 MG (1 mL) VIAL ONE (20:20)
== END 2024-10-23 23:12 | disposition home or self-care (01) ==
LOC: ERS 18:29
DX: R07.89 Other chest pain (principal); I10 Essential (primary) hypertension; E11.9 Type 2 diabetes mellitus without complications; Z79.899 Other long term (current) drug therapy
CPT/HCPCS: 36415; 71045; 71275; 80053; 84484; 85025; 93005; 96372; J1885